=== PATIENT | female | born 1970 | race Two or more races ===

== ENCOUNTER 2018-12-01 10:41 | Outpatient (CLI) | payer OTHER | END 2018-12-01 10:56 | disposition home or self-care (01) | LOC: SONOGRAMA 10:41 → MAMO-SONO 11:15 | DX: R10.2 Pelvic and perineal pain (principal); N92.0 Excessive and frequent menstruation with regular cycle ==

== ENCOUNTER → 2020-04-08 | Outpatient (CLI) | payer OTHER | END | disposition home or self-care (01) | LOC: MRI 13:15 | PROVIDERS: ATTEND Orthopaedic Surgery Sports Medicine | DX: M76.51 Patellar tendinitis, right knee (principal); M25.461 Effusion, right knee | CPT/HCPCS: 73721 ==